=== PATIENT | female | born 1980 | race Asian ===

== ENCOUNTER 2017-01-02 11:12 | Emergency (ER) | payer MEDICAID ==
[2017-01-02] MEDS ORDERED: ALBUTEROL NEB 2.5 MG/3 ML INH STA (11:54)
[2017-01-02] MEDS ORDERED: BENZONATATE 100 MG CAPSULE PO STA (11:54)
[2017-01-02] MEDS ORDERED: BENZONATATE 100 MG CAPSULE PO ONE (12:25)
== END 2017-01-02 12:47 | disposition home or self-care (01) ==
DX: J40 Bronchitis, not specified as acute or chronic (principal)
CPT/HCPCS: 71020; 94640; 94664; 99283; A9270; J7613

== ENCOUNTER 2017-09-18 17:35 | Outpatient (CLI) | payer MEDICAID ==
[2017-09-18 13:36] LABS: BILIRUBIN,URINE NEGATIVE (NEGATIVE); PH,URINE 6.5 PH (5.0-7.5)
[2017-09-18 13:42] LABS: BASOPHILS # (AUTO) 0.1 10^3/uL (0.0-0.1); BASOPHILS % (AUTO) 1.4 %; EOSINOPHILS # (AUTO) 0.1 10^3/uL (0.0-0.7); EOSINOPHILS % (AUTO) 3.4 %; HCT - HEMATOCRIT 40.2 % (37.0-47.0); HGB - HEMOGLOBIN 13.5 g/dL (12.0-16.0); LYMPHOCYTES # (AUTO) 1.4 10^3/uL (1.5-3.5); LYMPHOCYTES % (AUTO) 34.1 %; MEAN CORPUSCULAR HEMOGLOBIN 32.3 pg (27.0-31.0); MEAN CORPUSCULAR HGB CONC 33.6 g/dL (32.0-36.0); MEAN CORPUSCULAR VOLUME 96.2 fL (81.0-99.0); MEAN PLATELET VOLUME 8.7 fL (7.9-10.8); MONOCYTES # (AUTO) 0.5 10^3/uL (0.0-1.0); MONOCYTES % (AUTO) 11.3 %; NEUTROPHILS # (AUTO) 2.1 10^3/uL (1.5-6.6); NEUTROPHILS % (AUTO) 49.8 %; NUCLEATED RED BLOOD CELLS AUTO 0.1 /100WBC; RED BLOOD COUNT 4.18 10^6/uL (4.20-5.40); RED CELL DISTRIBUTION WIDTH 12.4 % (12.0-15.0); UNCORRECTED WHITE BLOOD COUNT 4.2 x10^3/uL; WHITE BLOOD COUNT 4.2 x10^3/uL (4.8-10.8)
[2017-09-18 14:04] LABS: WBC,URINE 0-3 /HPF (0-5)
[2017-09-19 04:01] LABS: TEST RESULT REPORT
== END 2017-09-18 17:36 | disposition home or self-care (01) ==
LOC: LAB.N 17:35
PROVIDERS: ATTEND Obstetrics & Gynecology
DX: Z36.9 Encounter for antenatal screening, unspecified (principal)
CPT/HCPCS: 36415; 81001; 81599; 85025; 86592; 86762; 86850; 86900; 86901; 87340; 87389; 87491; 87591

== ENCOUNTER 2017-10-20 11:15 | Outpatient (CLI) | payer MEDICAID ==
[2017-10-20 11:44] LABS: BASOPHILS % (AUTO) 0.3 %; EOSINOPHILS # (AUTO) 0.2 10^3/uL (0.0-0.7); EOSINOPHILS % (AUTO) 3.5 %; HGB - HEMOGLOBIN 13.8 g/dL (12.0-16.0); LYMPHOCYTES % (AUTO) 14.6 %; MEAN CORPUSCULAR HEMOGLOBIN 32.4 pg (27.0-31.0); MEAN CORPUSCULAR HGB CONC 33.6 g/dL (32.0-36.0); MEAN CORPUSCULAR VOLUME 96.4 fL (81.0-99.0); MEAN PLATELET VOLUME 7.5 fL (7.9-10.8); MONOCYTES # (AUTO) 0.5 10^3/uL (0.0-1.0); MONOCYTES % (AUTO) 7.4 %; NEUTROPHILS # (AUTO) 5.2 10^3/uL (1.5-6.6); NEUTROPHILS % (AUTO) 74.2 %; PLT - PLATELET COUNT 189 10^3/uL (130-450); RED BLOOD COUNT 4.25 10^6/uL (4.20-5.40); RED CELL DISTRIBUTION WIDTH 12.4 % (12.0-15.0)
[2017-10-20 11:58] LABS: BILIRUBIN,URINE NEGATIVE (NEGATIVE); GLUCOSE, URINE (UA) NEGATIVE (NEGATIVE); KETONES,URINE (UA) NEGATIVE (NEGATIVE); LEUKOCYTE ESTERASE, URINE NEGATIVE (NEGATIVE); NITRITE,URINE NEGATIVE (NEGATIVE); OCCULT BLOOD,URINE NEGATIVE (NEGATIVE); PROTEIN,URINE NEGATIVE (NEGATIVE); UROBILINOGEN,URINE 0.2 (NORMAL) E.U./dL (NORMAL)
[2017-10-20 12:00] LABS: CLARITY,URINE CLEAR (CLEAR)
== END 2017-10-20 11:16 | disposition home or self-care (01) ==
LOC: LAB 11:15
PROVIDERS: ATTEND Obstetrics & Gynecology
DX: Z01.812 Encounter for preprocedural laboratory examination (principal); O02.1 Missed abortion
CPT/HCPCS: 36415; 81003; 84702; 85025

== ENCOUNTER 2017-10-21 11:43 | Day surgery (SDC) | payer MEDICAID ==
[2017-10-21] MEDS ORDERED: LACTATED RINGERS 1,000 ML IV ONE ×2 (12:35→14:50)
[2017-10-21] MEDS ORDERED: SCOPOLAMINE PATCH TOP ONE (12:53)
[2017-10-21] MEDS ORDERED: PROPOFOL 200 MG/20 ML VIAL IVP ONE (13:21)
[2017-10-21] MEDS ORDERED: KETOROLAC 30 MG/ML VIAL IVP ONE (13:21)
[2017-10-21] MEDS ORDERED: OXYTOCIN 10 UNIT/ML VIAL IV ONE (13:21)
[2017-10-21] MEDS ORDERED: MIDAZOLAM 2 MG/2 ML VIAL IVP ONE (13:21)
[2017-10-21] MEDS ORDERED: fentaNYL 250 MCG/5 ML VIAL IVP ONE (13:21)
[2017-10-21] MEDS ORDERED: ONDANSETRON 4 MG/2 ML VIAL IVP ONE (13:21)
[2017-10-21] MEDS: fentaNYL 100 MCG/2 ML VIAL ONE ×2 (14:15→14:23)
[2017-10-21 15:04] VITALS: BP 90/58
--- NOTE | 2017-10-21 18:34 | OPERATIVE REPORT ---
Operative Report - General Procedure Date: 10/21/17 Planned Procedure: Dilatation and curettage with suction Pre-Op Diagnosis: Inevitable at 8 weeks gestation; Maternal fever 38C Procedure Performed: Dilatation and curettage with suction Post Op Diagnosis: Same as above - Procedure Note Primary Surgeon: Kelvin Butt MD Anesthesia Provider: Gomez Altman, certified nurse certified welder Anesthesia Technique: General ET tube Pathology: Moderate amount of conceptual products; aerobic culture and anaerobic culture IV Fluids (mL): 800 Estimated Blood Loss (mL): 150 Urine Output (mL): 100 Drain/Tube Type: Other (None) Complications: None
--- NOTE | 2017-11-03 09:23 | PROCEDURE REPORT ---
DATE OF SERVICE: 10/21/2017 Physician: Kelvin Butt MD PREOPERATIVE DIAGNOSES 1. Inevitable/missed at 8 weeks' gestation. 2. Mild maternal temperature elevation at 38 degrees Celsius. POSTOPERATIVE DIAGNOSES 1. Inevitable/missed at 8 weeks' gestation. 2. Mild maternal temperature elevation at 38 degrees Celsius. PROCEDURE: Dilatation and curettage with suction. SURGEON: Kelvin Butt MD, FACOG, FICS ANESTHESIA: Gomez Altman, Certified Nurse Radar Mechanic ANESTHESIA: General, ET tube placed. DRAINS: None. The patient was straight catheterized prior to surgery of approximately 100 mL COMPLICATIONS: None. ESTIMATED BLOOD LOSS: 150. FINDINGS: External genitalia appear to be normal without lesions. There was no blood or discharge in the vagina, but it had been prepped at the time of exam. Cervix was opened slightly 0.5 cm and softened. The uterus was retroflexed and retroverted and 8 week size. The ovaries were normal size, mobile. At the time of curettage, a moderate amount of conceptual products were harvested. There was no foul smell. Due to a maternal temperature elevation, aerobic and anaerobic cultures were obtained. INTRAVENOUS FLUIDS: 800. URINE OUTPUT: 100. TECHNIQUE: Prior to the procedure, I had a preoperative session with the patient and her . The mechanics of D and C, potential benefits, potential risks and alternatives were reviewed. She is certain she wants to move forward with her D and C. The patient was placed on the operating room table in the supine position. She was induced and intubated uneventfully. She was moved to the low dorsal lithotomy position on [facility] stirru. She was prepped and draped in the customary sterile fashion. Exam under anesthesia was done. She was straight catheterized. Timeout briefing was done per protocol. I was informed by Anesthesia the patient's temperature had risen to 38 degrees Celsius. Weighted speculum was placed in the posterior vagina. The cervix was well visualized and grasped with a single-tooth tenaculum. Serial application and Hegar probes were used to dilate to size #9. A medium curet was introduced into the uterus and the conceptual products were located on the anterior wall. A #9 suction curet was brought to the field and suctioned, appropriately adjusted. The suction curet then was uneventfully guided through the endocervix and into the uterine cavity. Negative pressure was applied and the curet manipulated in a systematic fashion. A moderate amount of conceptual products was harvested, consistent with the anticipated gestational age. Immediately after, the bleeding was somewhat brisk and the uterine cavity was packed with iodoform 1 inch gauze. Bleeding responded to packing and Pitocin. All instruments were removed. The patient was uneventfully awakened from general anesthesia and taken to Recovery. Postop, all the intraoperative events were reviewed with the patient. Iodoform gauze was removed and there was no subsequent bleeding. She was prepared for discharge. DISCHARGE MEDICATIONS 1. Motrin 600 p.o. q.6 hours. 2. Wadley 325/5 p.o. q.4 hours p.r.n. breakthrough pain. 3. Colace 250 mg 1 daily. FOLLOWUP: In 2 weeks, she will have a return visit to review pathology. TD: 11/03/2017 10:21
== END 2017-10-21 11:44 | disposition home or self-care (01) ==
LOC: SDS 11:43
PROVIDERS: ATTEND Obstetrics & Gynecology
PROC: 10D17ZZ Extraction of Products of Conception, Retained, Via Natural or Artificial Opening (ICD-10-PCS; principal; 2017-10-21 12:45)
DX: O02.1 Missed abortion (principal); R50.9 Fever, unspecified
CPT/HCPCS: 59820; 87070; 87205; 88305; J3010; J3490; J7120

== ENCOUNTER 2019-10-07 10:44 | Outpatient (CLI) | payer MEDICAID ==
--- NOTE | 2019-10-09 09:09 | Ultrasound Report ---
Reason: TEST POSITIVE Procedure Date: 10/07/2019 Accession Number: [id number] / [id number] Procedure: US - OB First Trimester CPT Code: Final Report FULL RESULT: EXAM: FIRST TRIMESTER OBSTETRIC ULTRASOUND (Less than 11 weeks) EXAM DATE: 10/07/2019 03:13 PM. CLINICAL HISTORY: test positive. LMP: 08/04/2019. COMPARISONS: OB 09/01/2011 9:23 AM. TECHNIQUE: Transabdominal and transvaginal ultrasound examination with static image documentation. CLINICAL DATES: EGA 9 weeks 1 day with LAURA 05/10/2020 based on LMP. ASSESSMENT: Gestational Sac: Single intrauterine. Embryo: CRL (crown-rump length) 24 mm = 9 weeks 1 day with an LAURA of 05/10/2020. Cardiac activity: 173 beats per minute. Yolk sac: 5 mm. Amniotic fluid: Not accurately assessed at this gestational age. Early placenta: Not visible at this gestational age. Other: Complex perigestational fluid measuring 2.3 x 1.1 x 2.6 cm. MATERNAL STRUCTURES: Uterus: Anteverted. Unremarkable. Cervix: Closed. Right Ovary/Adnexa: The ovary measures 2.7 x 3.0 x 2.5 cm, volume 10.4 cc. 2.2 cm complex right ovarian cyst with debris and mild peripheral flow. No mural nodules or thickened septations. Left Ovary/Adnexa: The ovary measures 3.5 x 2.3 x 4.2 cm, volume 18 cc. Unremarkable. Free Fluid: None. Other: None. IMPRESSION: 1. Single viable intrauterine at EGA 9 weeks 1 day with LAURA 05/10/2020 based on crown-rump length, which is concordant with clinical dates. 2. Assigned dating is LAURA 05/10/2020 based on LMP. 3. Small perigestational hemorrhage as above. 4. 2.2 cm complex right ovarian cyst most compatible with hemorrhagic cyst or corpus luteum. Otherwise, normal bilateral ovaries and adnexa are seen. RADIA
== END 2019-10-07 10:45 | disposition home or self-care (01) ==
LOC: DI 10:44
PROVIDERS: ATTEND Nurse Practitioner Obstetrics & Gynecology
DX: O34.81 Maternal care for other abnormalities of pelvic organs, first trimester (principal); N83.201 Unspecified ovarian cyst, right side; Z3A.09 9 weeks gestation of pregnancy
CPT/HCPCS: 76801

== ENCOUNTER 2019-10-24 10:32 | Outpatient (CLI) | payer MEDICAID ==
[2019-10-24 14:22] LABS: BILIRUBIN,URINE NEGATIVE (NEGATIVE); GLUCOSE, URINE (UA) NEGATIVE (NEGATIVE); KETONES,URINE (UA) NEGATIVE (NEGATIVE); LEUKOCYTE ESTERASE, URINE NEGATIVE (NEGATIVE); NITRITE,URINE NEGATIVE (NEGATIVE); OCCULT BLOOD,URINE NEGATIVE (NEGATIVE); PH,URINE 6.5 PH (5.0-7.5); PROTEIN,URINE NEGATIVE (NEGATIVE); UROBILINOGEN,URINE 0.2 (NORMAL) E.U./dL (NORMAL)
[2019-10-24 14:26] LABS: CLARITY,URINE CLEAR (CLEAR)
[2019-10-24 14:47] LABS: AMORPHOUS SEDIMENT,UR Moderate /LPF; BACTERIA,URINE Many /HPF (None Seen); CASTS, URINE 0-2 Granular Casts /LPF; MUCUS,URINE Few Strands; RBC,URINE 0-5 /HPF (0-5); SQUAMOUS EPITHELIAL CELL,UR MOD Squamous (<= Few)
[2019-10-24 22:44] LABS: TRICHOMONAS VAGINALIS DNA NEGATIVE (NEGATIVE)
== END 2019-10-24 10:33 | disposition home or self-care (01) ==
LOC: LAB 10:32 → LAB.R 10:33
PROVIDERS: ATTEND Obstetrics & Gynecology
DX: Z34.90 Encounter for supervision of normal pregnancy, unspecified, unspecified trimester (principal)
CPT/HCPCS: 81001; 87086; 87491; 87591; 87661

== ENCOUNTER 2019-11-22 08:00 | Outpatient (CLI) | payer MEDICAID ==
[2019-11-22 15:00] LABS: MUDS CUTOFF CONCENTRATIONS CUTOFF CONC BELOW:
[2019-11-22 15:21] LABS: AMPHETAMINE SCREEN,URINE NEGATIVE (NEGATIVE); BENZODIAZEPINES SCREEN, URINE NEGATIVE (NEGATIVE); COCAINE SCREEN URINE NEGATIVE (NEGATIVE); METHADONE SCREEN, URINE NEGATIVE (NEGATIVE); METHAMPHETAMINES SCREEN, URINE NEGATIVE (NEGATIVE); OPIATE SCREEN, URINE NEGATIVE (NEGATIVE); OXYCODONE SCREEN, URINE NEGATIVE (NEGATIVE); PROPOXYPHENE SCREEN, URINE NEGATIVE (NEGATIVE); TRICYCLIC ANTIDEPRESSANT,URINE NEGATIVE (NEGATIVE)
[2019-11-22 20:55] LABS: CANDIDA GROUP DNA NEGATIVE (NEGATIVE); CANDIDA KRUSEI DNA NEGATIVE (NEGATIVE); TRICHOMONAS VAGINALIS DNA NEGATIVE (NEGATIVE)
== END 2019-11-22 23:59 | disposition home or self-care (01) ==
LOC: LAB.R 08:00
PROVIDERS: ATTEND Obstetrics & Gynecology
DX: O46.92 Antepartum hemorrhage, unspecified, second trimester (principal)
CPT/HCPCS: 80306; 87661; 87801

== ENCOUNTER 2019-11-22 11:41 | Outpatient (CLI) | payer MEDICAID ==
[2019-11-22 12:13] LABS: BASOPHILS % (AUTO) 0.5 %; EOSINOPHILS # (AUTO) 0.1 10^3/uL (0.0-0.7); EOSINOPHILS % (AUTO) 1.5 %; LYMPHOCYTES # (AUTO) 1.3 10^3/uL (1.5-3.5); MEAN CORPUSCULAR HEMOGLOBIN 32.7 pg (27.0-31.0); MEAN CORPUSCULAR HGB CONC 33.2 g/dL (32.0-36.0); MEAN CORPUSCULAR VOLUME 98.5 fL (81.0-99.0); MEAN PLATELET VOLUME 10.3 fL (7.9-10.8); MONOCYTES # (AUTO) 0.5 10^3/uL (0.0-1.0); MONOCYTES % (AUTO) 6.2 %; NEUTROPHILS # (AUTO) 6.2 10^3/uL (1.5-6.6); NEUTROPHILS % (AUTO) 75.3 %; PLT - PLATELET COUNT 215 10^3/uL (130-450); RED BLOOD COUNT 3.98 10^6/uL (4.20-5.40); RED CELL DISTRIBUTION WIDTH 12.1 % (12.0-15.0); WHITE BLOOD COUNT 8.2 x10^3/uL (4.8-10.8)
[2019-11-23 12:38] LABS: HEPATITIS C ANTIBODY NON-REACTIVE (NON-REACTIVE)
[2019-11-23 12:39] LABS: HEPATITIS B SURFACE ANTIGEN NON-REACTIVE (NON-REACTIVE)
[2019-11-23 14:20] LABS: HIV AG/AB 4TH GEN NON-REACTIVE (NON-REACTIVE)
== END 2019-11-22 11:42 | disposition home or self-care (01) ==
LOC: LAB 11:41
PROVIDERS: ATTEND Obstetrics & Gynecology
DX: O46.92 Antepartum hemorrhage, unspecified, second trimester (principal); O09.892 Supervision of other high risk pregnancies, second trimester
CPT/HCPCS: 36415; 80306; 81599; 85025; 86592; 86762; 86803; 86850; 86900; 86901; 87340; 87389; 87661; 87801

== ENCOUNTER 2019-11-27 14:10 | Outpatient (CLI) | payer MEDICAID ==
--- NOTE | 2019-11-29 08:23 | Ultrasound Report ---
Reason: 2ND TRIMESTER VAGINAL BLEEDING Procedure Date: 11/27/2019 Accession Number: [id number] / [id number] Procedure: US - OB F/U or Repeat CPT Code: Final Report FULL RESULT: EXAM: FOLLOW-UP OBSTETRICAL ULTRASOUND EXAM DATE: 11/27/2019 02:16 PM. CLINICAL HISTORY: 2ND TRIMESTER VAGINAL BLEEDING. COMPARISON: OB FIRST TRIMESTER 10/07/2019 11:02 AM. TECHNIQUE: Real-time sonographic evaluation of the fetus performed by the aluminum can collector. Additional transvaginal imaging to more accurately evaluate cervical length/placental position/etc. Multiple internet sales representative static images were saved for review. DATING: Established EGA 16 weeks 3 days with LAURA 05/10/2020 based on physician stated. EGA 16 weeks 3 days with LAURA 05/10/2020 based on prior ultrasound . EGA Extina weeks 5 days with LAURA 05/08/2020 based on the current ultrasound. GENERAL EVALUATION Teresa . Cardiac activity: 149 bpm. movement: Visualized. Presentation: Cephalic. Variable Placenta: Anterior position. Amniotic fluid: Normal. KRAIG 10.9 cm. MVP 3.4 cm. BIOMETRY Bi-Parietal Diameter (BPD): 3.7 cm, 17 weeks 2 days Head Circumference (HC): 13.5 cm, 17 weeks 0 days Abdominal Circumference (AC): 10.7 cm, 16 weeks 4 days Femur Length (FL): 2.1 cm, 16 weeks 1 day Estimated Weight: 157 g, 44 percentile for weeks/days. ANATOMY Not evaluated MATERNAL STRUCTURES Right ovary: 2 x 1.4 x 1.6 cm. 2.3 cc. Possible involuting corpus luteum 1.7 x 0.9 x 1 cm. Left ovary not seen. Cervix 5.7 cm. IMPRESSION: 1. Teresa live intrauterine with gestational age 16 weeks 3 days based on physician dating in variable presentation.. 2. Estimated weight is within expected limits for assigned dating. 3. Anterior placenta with no placenta previa. RADIA
== END 2019-11-27 14:11 | disposition home or self-care (01) ==
LOC: DI 14:10
PROVIDERS: ATTEND Obstetrics & Gynecology
DX: O46.92 Antepartum hemorrhage, unspecified, second trimester (principal); Z3A.16 16 weeks gestation of pregnancy
CPT/HCPCS: 76816

== ENCOUNTER 2020-01-21 08:05 | Outpatient (CLI) | payer MEDICAID ==
--- NOTE | 2020-01-22 01:26 | Ultrasound Report ---
Reason: SUPER OF NORMAL Procedure Date: 01/21/2020 Accession Number: [id number] / [id number] Procedure: US - OB Detailed Eval CPT Code: Final Report FULL RESULT: EXAM: COMPLETE OBSTETRICAL ULTRASOUND EXAM DATE: 01/21/2020 09:50 AM. CLINICAL HISTORY: anatomic survey. COMPARISON: OB F/U OR REPEAT 11/27/2019 2:16 PM. TECHNIQUE: Real-time sonographic evaluation of the fetus performed by the merchandising consultant. Multiple operations representative static images were saved for review. DATING: Established EGA 24 weeks 2 days with LAURA 05/10/2020 based on LMP. EGA 24 weeks 2 days with LAURA 05/10/2020 based on prior ultrasound. EGA 24 weeks 3 days with LAURA 05/09/2020 based on the current ultrasound. GENERAL EVALUATION Teresa . Cardiac activity: 139 bpm. movement: Visualized. Presentation: Variable. Placenta: Anterior position. No evidence for previa. Umbilical cord: 3 vessel cord. Central placental cord origin. Amniotic fluid: KRAIG 17.7 cm. MVP 6.5 cm. BIOMETRY Bi-Parietal Diameter (BPD): 6.0 cm, 24 weeks 4 days Head Circumference (HC): 22.3 cm, 24 weeks 2 days Abdominal Circumference (AC): 20.0 cm, 24 weeks 5 days Femur Length (FL): 4.2 cm, 23 weeks 6 days Estimated Weight: 682 g, 41.2 percentile for 24 weeks 2 days. ANATOMY The intracranial structures, profile, face/nose/lips, spine, 4 chamber heart and outflow tracts, stomach, abdominal wall and cord insertion, diaphragm, kidneys, bladder, and extremities were visualized and demonstrate no abnormality. MATERNAL STRUCTURES Uterus: Unremarkable. Cervix: Long and closed. Transabdominal length 4.7 cm. Right ovary/adnexa: Unremarkable. Left ovary/adnexa: Unremarkable. Free fluid: None. IMPRESSION: 1. Teresa live intrauterine with gestational age 24 weeks 2 days based on LMP. 2. Estimated weight is within expected limits for assigned dating. 3. Normal anatomic survey. No anatomic abnormalities are detected at this time. RADIA
== END 2020-01-21 08:06 | disposition home or self-care (01) ==
LOC: DI 08:05
PROVIDERS: ATTEND Obstetrics & Gynecology
DX: Z34.02 Encounter for supervision of normal first pregnancy, second trimester (principal)
CPT/HCPCS: 76811

== ENCOUNTER 2020-01-25 08:15 | Outpatient (CLI) | payer MEDICAID | END 2020-01-25 08:16 | disposition home or self-care (01) | LOC: LAB 08:15 | PROVIDERS: ATTEND Obstetrics & Gynecology | DX: Z34.90 Encounter for supervision of normal pregnancy, unspecified, unspecified trimester (principal) | CPT/HCPCS: 36415; 82950 ==

== ENCOUNTER 2020-02-23 07:59 | Outpatient (CLI) | payer MEDICAID ==
[2020-02-23 08:26] LABS: HGB - HEMOGLOBIN 12.4 g/dL (12.0-16.0); MEAN CORPUSCULAR HEMOGLOBIN 32.9 pg (27.0-31.0); MEAN CORPUSCULAR HGB CONC 32.7 g/dL (32.0-36.0); MEAN CORPUSCULAR VOLUME 100.5 fL (81.0-99.0); MEAN PLATELET VOLUME 10.6 fL (7.9-10.8); RED BLOOD COUNT 3.77 10^6/uL (4.20-5.40); RED CELL DISTRIBUTION WIDTH 12.5 % (12.0-15.0); WHITE BLOOD COUNT 6.8 x10^3/uL (4.8-10.8)
== END 2020-02-23 08:00 | disposition home or self-care (01) ==
LOC: LAB 07:59
PROVIDERS: ATTEND Obstetrics & Gynecology
DX: O99.810 Abnormal glucose complicating pregnancy (principal); Z36.89 Encounter for other specified antenatal screening; Z3A.00 Weeks of gestation of pregnancy not specified
CPT/HCPCS: 36415; 82951; 82952; 85027; 86850

== ENCOUNTER 2020-04-12 08:00 | Outpatient (CLI) | payer MEDICAID ==
[2020-04-12 21:29] LABS: TRICHOMONAS VAGINALIS DNA NEGATIVE (NEGATIVE)
== END 2020-04-12 23:59 | disposition home or self-care (01) ==
LOC: LAB.R 08:00
PROVIDERS: ATTEND Obstetrics & Gynecology
DX: Z36.85 Encounter for antenatal screening for Streptococcus B (principal); Z11.3 Encounter for screening for infections with a predominantly sexual mode of transmission
CPT/HCPCS: 87491; 87591; 87661; 87797

== ENCOUNTER 2020-05-01 09:47 | Inpatient (IN) | payer MEDICAID ==
[2020-05-01] MEDS ORDERED: TRANEXAMIC ACID 1,000 MG in SODIUM CHLORIDE 0.9% 100ML 100 ML IV PRN (09:57)
[2020-05-01] MEDS ORDERED: LIDOCAINE-MPF 1% 30 ML VIAL ID PRN (09:57)
[2020-05-01] MEDS ORDERED: OXYTOCIN 10 UNIT/ML VIAL IM PRN (09:57)
[2020-05-01] MEDS ORDERED: CARBOPROST TROMETHAMINE 250 MCG/ML AMP IM PRN (09:57)
[2020-05-01] MEDS ORDERED: miSOPROStoL 200 MCG TABLET BC PRN (09:57)
[2020-05-01] MEDS ORDERED: METHYLERGONOVINE 0.2 MG/ML VIAL IM PRN (09:57)
[2020-05-01] MEDS ORDERED: SODIUM CHLORIDE FLUSH 0.9% 10 ML SYRINGE IVP PRN (09:57)
[2020-05-01] MEDS ORDERED: ceFAZolin 2 GM in SODIUM CHLORIDE 0.9% 100ML 100 ML IV ONE (09:57)
[2020-05-01] MEDS ORDERED: OXYTOCIN/SODIUM CHLORIDE 500 ML IV PRN ×2 (09:57)
[2020-05-01] MEDS: LACTATED RINGERS 1,000 ML IV SCH ×3 (10:29→21:32)
[2020-05-01 10:41] LABS: BASOPHILS % (AUTO) 0.3 %; EOSINOPHILS % (AUTO) 0.5 %; HGB - HEMOGLOBIN 13.3 g/dL (12.0-16.0); LYMPHOCYTES # (AUTO) 1.1 10^3/uL (1.5-3.5); LYMPHOCYTES % (AUTO) 18.1 %; MEAN CORPUSCULAR HEMOGLOBIN 33.8 pg (27.0-31.0); MEAN CORPUSCULAR HGB CONC 33.8 g/dL (32.0-36.0); MEAN PLATELET VOLUME 11.3 fL (7.9-10.8); MONOCYTES # (AUTO) 0.6 10^3/uL (0.0-1.0); MONOCYTES % (AUTO) 10.4 %; NEUTROPHILS # (AUTO) 4.2 10^3/uL (1.5-6.6); NEUTROPHILS % (AUTO) 70.2 %; PLT - PLATELET COUNT 154 10^3/uL (130-450); RED BLOOD COUNT 3.94 10^6/uL (4.20-5.40); RED CELL DISTRIBUTION WIDTH 12.8 % (12.0-15.0)
[2020-05-01] MEDS ORDERED: CITRIC ACID/SODIUM CITRATE 15 ML UDC PO ONE ×2 (10:49→10:56)
--- NOTE | 2020-05-01 10:49 | ANESTHESIA ---
Pre-Anesthesia VS, & Labs - Diagnosis ruptured membranes requiring c sec - Procedure c sec. Vital Signs: Temp Pulse Resp BP Pulse Ox 36.5 C 75 16 99/59 L 100 05/01/20 10:01 05/01/20 10:01 05/01/20 10:01 05/01/20 10:01 05/01/20 10:01 Height 5 ft 3 in Weight (kg) 52.163 kg Body Mass Index 17.5 - NPO >8 hours - Is Patient ?: Yes - Lab Results Current Lab Results: Laboratory Tests 05/01/20 10:29: WBC 6.0, RBC 3.94 L, Hgb 13.3, Hct 39.4, MCV 100.0 H, MCH 33.8 H , MCHC 33.8, RDW 12.8, Plt Count 154, MPV 11.3 H, Neut # (Auto) 4.2, Lymph # (Auto) 1.1 L, [place] # (Auto) 0.6, Eos # (Auto) 0.0, Baso # (Auto) 0.0, Absolute Nucleated RBC 0.00, Nucleated RBC % 0.0 Fish Bones: 05/01/20 10:29 Home Medications and Allergies Active Medications Carboprost Tromethamine (Hemabate) 250 mcg IM Q15M PRN PRN Reason: Step 4: Hemorrhage protocol Stop: 05/03/20 09:57 Lactated Ringer's (Lr) 1,000 mls @ 150 mls/hr IV .Q6H40M ANNA Last Admin: 05/01/20 10:29 Dose: 150 mls/hr Documented by: Tranexamic Acid 1,000 mg/ (Sodium Chloride) 110 mls @ 660 mls/hr IV ONCE PRN PRN Reason: EBL >1200mL and within 3hr Stop: 05/03/20 09:57 Oxytocin/Sodium Chloride (Pitocin/Sodium Chloride) 500 mls @ 999 mls/hr IV PRN PRN; Protocol PRN Reason: POST- HEMORR PREVENTION Lidocaine HCl (Xylocaine-Mpf 1% Vial) 30 ml ID ONCE PRN PRN Reason: PERINEAL REPAIR Stop: 05/03/20 09:57 Methylergonovine Maleate (Methergine Inj) 0.2 mg IM ONCE PRN PRN Reason: Step 2: Hemorrhage protocol Stop: 05/03/20 09:57 Misoprostol (Cytotec) 800 mcg BC ONCE PRN PRN Reason: Step 3: Hemorrhage protocol Stop: 05/03/20 09:57 Oxytocin (Pitocin) 10 unit IM ONCE PRN PRN Reason: Step one: If no IV access Stop: 05/03/20 09:57 Sodium Chloride (Normal Saline Flush 0.9%) 10 ml IVP PRN PRN PRN Reason: NEEDED PER PROVIDER ORDERS Sodium Chloride (Normal Saline Flush 0.9%) 10 ml IVP 0100,0900,1700 ANNA No Known Home Medications 10/20/17 Allergies/Adverse Reactions: Allergies Allergy/AdvReac Type Severity Reaction Status Date / Time No Known Drug Allergies Allergy Verified 10/20/17 11:21 Anes History & Medical History - Anesthetic History Anesthesia Complications: reports: No previous complications Family history of Anesthesia Complications: Denies Family history of Malignant Hyperthermia: Denies - Medical History Cardiovascular: reports: None Pulmonary: reports: None Gastrointestinal: reports: None Urinary: reports: None Neuro: reports: None Musculoskeletal: reports: None Endocrine/Autoimmune: reports: None Blood Disorders: reports: None Skin: reports: None Smoking Status: Never smoker Psychosocial: reports: No issues indicated - Surgical History General: Appendectomy Gynecologic: section Exam General: Alert, Oriented x3, Cooperative, No acute distress Dental: WNL Mouth Openin Fingerbreadth Neck Mobility: Normal Mallampati classification: I Thyromental Distance: 4-6 cm Respiratory: Lungs clear, Normal breath sounds, No respiratory distress, No accessory muscle use Cardiovascular: Regular rate, Normal S1, Normal S2, No murmurs Abdomen: Normal bowel sounds, Soft, No tenderness, No hepatospenomegaly, No masses Extremities: No clubbing, No cyanosis, No edema, Normal pulses, No tenderness/swelling Neurological: Normal gait, Normal speech, Strength at 5/5 X4 ext, Normal tone, Sensation intact, Cranial nerves 3-12 NL, Reflexes 2+ Mental/Cognitive Status: Alert/Oriented X3, Normal for patient Cognitive Status: Within normal limits Plan Anesthesia Type: Spinal, Transverse Abdominis Plane (TAP) Block Consent for Procedure(s) Verified and Reviewed: Yes Code Status: Attempt Resuscitation ASA classification: 2-Mild systemic disease Is this case an emergency?: No
[2020-05-01] MEDS ORDERED: MORPHINE PF 5 MG/10 ML AMP IVP ONE (11:11)
[2020-05-01] MEDS ORDERED: [UNRECOGNIZED DRUG - OTHER] EP ONE (11:11)
[2020-05-01] MEDS ORDERED: fentaNYL 100 MCG/2 ML VIAL IVP ONE (11:11)
[2020-05-01] MEDS ORDERED: DEXAMETHASONE 4 MG/ML VIAL IVP ONE (11:11)
[2020-05-01] MEDS ORDERED: ONDANSETRON 4 MG/2 ML VIAL IVP ONE (11:11)
[2020-05-01] MEDS ORDERED: BUPIVACAINE 0.75% EP ONE (11:11)
[2020-05-01] MEDS ORDERED: OXYTOCIN 10 UNIT/ML VIAL IV ONE (11:11)
[2020-05-01] MEDS ORDERED: ROPIVACAINE 0.5% PF 20 ML AMPULE ONE (11:13)
[2020-05-01] MEDS ORDERED: ROPIVACAINE 0.2% PF 20ML VIAL ONE (11:13)
[2020-05-01] MEDS ORDERED: CARBOPROST TROMETHAMINE 250 MCG/ML AMP IM ONE (11:14)
[2020-05-01] MEDS ORDERED: METHYLERGONOVINE 0.2 MG/ML VIAL ONE (11:14)
[2020-05-01] MEDS ORDERED: LACTATED RINGERS 1,000 ML IV ONE (11:42)
[2020-05-01] MEDS ORDERED: SODIUM CHLORIDE 0.9% 1,000 ML IV ONE (12:40)
--- NOTE | 2020-05-01 12:53 | PREOP HISTORY & PHYSICAL ---
DATE OF SERVICE: 05/01/2020 Physician: Kelvin Reaves MD IDENTIFICATION: Patient is a 40-year-old G4, P2, AB1 female whose EDC is 05/10/2020. This was deter mined by early visits and ultrasound. She has a history of having had 2 previous sections. She is also requesting a tubal ligation. She is aware this is a permanent procedure. Her OB care started at 11 weeks' EGA. Her labs show her to be O positive, she is rubella immune. Sh e is GC chlamydia negative, as are the rest of her STIs; however, she had a Pap smear which showed ev idence of high-grade CHASIDY. She underwent a colposcopy earlier in her . At this particular p oint, she complained of bleeding and cramping, which started last night. She had bloody show twice. She does note good motion. At this point, she was scheduled for a on this coming ; we are planning to proceed on to at this time. PAST MEDICAL HISTORY: Patient denies any diabetic, cardiac, or pulmonary disease. SURGICAL HISTORY: Positive for section x2 as well as appendectomy. ALLERGIES: NONE KNOWN. HABITS: Patient denies use of alcohol, tobacco, or street or addictive drugs. She is currently gretchen ied. Her ethnic background is [place]ian. She does appear to speak and understand Lithuanian in a functi onal fashion. PHYSICAL EXAMINATION GENERAL: Patient is a well-developed, well-nourished female. She is somewhat thin in nature. HEENT: Pupils equal, round. Extraocular muscles are intact. Thyroid is not palpably enlarged. Winnie th is clear. HEART: Regular rate and rhythm without murmurs. LUNGS: Lung mckenzie are clear without rales or wheezes. BACK: No spinal or CVA tenderness noted. PELVIC: On examination, her fundal height was 38 cm, vertex. heart tones were running in the 40s. Cervix was noted to be fingertip. She was -1. She was 60% effaced. IMPRESSION 1. A 40-year-old G4, P2 female at 38 weeks 5 days, early labor. 2. Previous section x2. 3. Undesired fertility. PLAN: We will perform a repeat low transverse section, as well as tubal ligation with salpi ngectomy. The patient is aware of the risks and benefits. She is also aware that salpingectomy shou ld be considered permanent and, as such, she would never be able to have children again. TD: 05/01/2020 11:14
[2020-05-01] MEDS: ACETAMINOPHEN 500 MG TABLET PO SCH ×2 (15:19→23:01)
[2020-05-01] MEDS: KETOROLAC 30 MG/ML VIAL IVP SCH ×2 (15:19→20:52)
[2020-05-01] MEDS: oxyCODONE 5 MG TABLET PO PRN ×2 (17:03→20:53)
[2020-05-01] MEDS: SIMETHICONE CHEW 80 MG TABLET PO SCH (17:03)
--- NOTE | 2020-05-01 17:24 | OPERATIVE REPORT ---
DATE OF SERVICE: 05/01/2020 Physician: Kelvin Reaves MD PREOPERATIVE DIAGNOSES 1. A 39-year-old female at 38.5 weeks. 2. Early labor. 3. Previous section. 4. Undesired fertility. POSTOPERATIVE DIAGNOSES 1. A 39-year-old female at 38.5 weeks. 2. Early labor. 3. Previous section. 4. Undesired fertility. PROCEDURE: Repeat low transverse section with bilateral salpingectomy. SURGEON: Kelvin Reaves MD. AGRI BUSINESS AGENT: Savannah Baez, certified nurse patroller. ANESTHESIA PROVIDER: ABIOLA Abdi. ANESTHETIC: Spinal. ESTIMATED BLOOD LOSS: 800 mL IV FLUIDS: 1100 mL FINDINGS: Upon entering the abdominal cavity, a live female infant noted in the right occiput anterior, clear amniotic fluid. Placenta is posterior. PROCEDURE IN DETAIL: Following adequate spinal anesthesia, patient placed in supine position with a roll under right hip. At this point, a timeout was performed, at which time concerns were addressed. She was then prepped and draped in the usual fashion. A Galan catheter was placed under sterile condition. At this point, a Pfannenstiel incision was made through the old scar, excising the old incision. This was carried down to the fascia. The fascia was incised transversely, then using Garcia scissors, it was extended. The fascia was then dissected off the rectus abdominis. The peritoneum was entered high. Care was taken to avoid any injury to bowel or bladder. At this point, this incision was carried superiorly and inferiorly. Care was once again taken to avoid injury to the bladder. Bladder retractor was placed, and a bladder flap was developed using both blunt and sharp dissection. At this point, a low transverse uterine incision was accomplished using a #10 blade, bandage scissors, and finger spread technique. The membranes were then ruptured, and the amniotic fluid was noted to be clear. The head of the was noted to be right occiput anterior. Then utilizing fundal pressure, the infant was delivered through the incision without difficulty. The oropharynx was bulb suctioned. A loose nuchal cord was noted. A minute was allowed to transpire before clamping the cord. The infant was then handed to the nursery team that was standing by. At this point, the placenta was manually delivered. The uterus was exteriorized, wrapped in a moist lap, and cleansing the internal portion with dry lap. The low transverse uterine incision was closed using running locking suture of 0 Vicryl with an imbricating layer of 0 Vicryl. Upon initiating this layer, there was some bleeding, which came from the left uterine vessels. This was treated with a figure of 8 and then pressure. Once the incision was totally closed, attention was turned back to the vessel, and an additional [id number] was performed with evidence of good hemostasis. The uterus was then tipped forward. The cul-de-sac was suctioned, and then the estimated blood loss was ascertained. The cul-de-sac was irrigated, gutters were likewise clean. The right fallopian tube was identified, followed to its fimbriated end, and then the mesosalpinx was cauterized and transected with the LigaSure all the way to the cornu. Care was taken to leave as minimal tube as possible. The left fallopian tube was treated in identical fashion. At this point, the uterus was delivered back in abdominal cavity. The gutters were irrigated and suctioned. The incision was inspected. There was no evidence of any bleeding. The posterior uterus on the left side was once again inspected, and there was no evidence of bleeding. The peritoneum was closed utilizing 2-0 Vicryl. This fascia was closed using looped PDS. Care was taken to try to bury the knot as to minimize the patient's postop pain. The subcutaneous tissue was closed using 2-0 Vicryl. Incision itself was closed using 4-0 Monocryl subcuticular. This was then treated with Mastisol, Steri- Strips, and then a dressing was placed. The uterus was expressed free of any clot. Patient tolerated the procedure well and was taken to recovery in stable condition. TD: 05/01/2020 16:11 ADRIENNE
[2020-05-01] MEDS: DOCUSATE SODIUM 100 MG CAPSULE PO SCH (20:52)
[2020-05-02] MEDS: oxyCODONE 5 MG TABLET PO PRN ×7 (00:38→22:18)
[2020-05-02] MEDS: KETOROLAC 30 MG/ML VIAL IVP SCH ×2 (02:58→08:52)
[2020-05-02] MEDS: LACTATED RINGERS 1,000 ML IV SCH ×2 (03:44→15:02)
[2020-05-02 05:23] LABS: BASOPHILS % (AUTO) 0.3 %; EOSINOPHILS % (AUTO) 0.1 %; HGB - HEMOGLOBIN 9.9 g/dL (12.0-16.0); LYMPHOCYTES # (AUTO) 1.2 10^3/uL (1.5-3.5); LYMPHOCYTES % (AUTO) 10.8 %; MEAN CORPUSCULAR HEMOGLOBIN 33.3 pg (27.0-31.0); MEAN CORPUSCULAR HGB CONC 32.9 g/dL (32.0-36.0); MEAN CORPUSCULAR VOLUME 101.3 fL (81.0-99.0); MEAN PLATELET VOLUME 11.3 fL (7.9-10.8); MONOCYTES % (AUTO) 8.4 %; NEUTROPHILS # (AUTO) 9.2 10^3/uL (1.5-6.6); NEUTROPHILS % (AUTO) 79.8 %; PLT - PLATELET COUNT 124 10^3/uL (130-450); RED BLOOD COUNT 2.97 10^6/uL (4.20-5.40); RED CELL DISTRIBUTION WIDTH 12.7 % (12.0-15.0); WHITE BLOOD COUNT 11.5 x10^3/uL (4.8-10.8)
[2020-05-02] MEDS: SODIUM CHLORIDE FLUSH 0.9% 10 ML SYRINGE IVP SCH ×2 (07:11→08:53)
[2020-05-02] MEDS: SIMETHICONE CHEW 80 MG TABLET PO SCH ×4 (07:11→17:45)
[2020-05-02] MEDS: ACETAMINOPHEN 500 MG TABLET PO SCH ×3 (07:14→23:00)
--- NOTE | 2020-05-02 09:00 | PROVIDER PROGRESS NOTE ---
Subjective - General Admit Date: 05/01/20 Procedure Date: 10/21/17 Post Op Days: 924 Procedure Performed: RLTC/S withsalpingectomy - Review of Systems Wound/Incisions: positive: Dressing dry and intact General: positive: No symptoms (Pain 3/10, passing flatus.) Pulmonary: positive: No symptoms Cardiovascular: positive: No symptoms Gastrointestinal: positive: Flatus Objective - Patient Data Reviewed Vital Signs: Yes Vital Signs: Vital Signs x48h Temp Pulse Resp BP Pulse Ox 05/02/20 06:04 14 05/02/20 04:28 36.5 C 53 L 17 89/51 L 98 05/02/20 03:50 16 05/02/20 03:00 14 05/02/20 02:21 14 05/02/20 01:48 16 Weight: Weight 04/30/20 05/01/20 05/02/20 23:59 23:59 23:59 Weight (kg) 52.163 kg Intake & Output: Intake and Output Totals x24h 04/30/20 05/01/20 05/02/20 23:59 23:59 23:59 Intake Total 3757.5 1380 Output Total 1645 1050 Balance 2112.5 330 - Lab Results Lab Results: 05/02/20 05:15 Other Lab Results: Lab Results x24hrs 05/02/20 05/01/20 05/01/20 Range/Units 05:15 10:29 10:29 WBC 11.5 H 6.0 (4.8-10.8) x10^3/uL RBC 2.97 L 3.94 L (4.20-5.40) 10^6/uL Hgb 9.9 L 13.3 (12.0-16.0) g/dL Hct 30.1 L 39.4 (37.0-47.0) % MCV 101.3 H 100.0 H (81.0-99.0) fL MCH 33.3 H 33.8 H (27.0-31.0) pg MCHC 32.9 33.8 (32.0-36.0) g/dL RDW 12.7 12.8 (12.0-15.0) % Plt Count 124 L 154 (130-450) 10^3/uL MPV 11.3 H 11.3 H (7.9-10.8) fL Neut # (Auto) 9.2 H 4.2 (1.5-6.6) 10^3/uL Lymph # (Auto) 1.2 L 1.1 L (1.5-3.5) 10^3/uL [place] # (Auto) 1.0 0.6 (0.0-1.0) 10^3/uL Eos # (Auto) 0.0 0.0 (0.0-0.7) 10^3/uL Baso # (Auto) 0.0 0.0 (0.0-0.1) 10^3/uL Absolute Nucleated RBC 0.00 0.00 x10^3/uL Nucleated RBC % 0.0 0.0 /100WBC Blood Type O POSITIVE Antibody Screen NEGATIVE - Current Medications Current Medications: Current Medications Generic Name Dose Route Start Last Admin Trade Name Freq PRN Reason Stop Dose Admin Acetaminophen 1,000 mg 05/01/20 14:00 05/02/20 07:14 Tylenol PO 1,000 mg Q8H ANNA Administration Docusate Sodium 100 mg 05/01/20 21:00 05/01/20 20:52 Colace 100mg Capsule PO 100 mg BID ANNA Administration Lactated Ringer's 1,000 mls @ 150 mls/hr 05/01/20 10:00 05/02/20 03:44 Lr IV 150 mls/hr .Q6H40M ANNA Administration Oxycodone HCl 5 mg 05/01/20 13:25 05/02/20 05:50 Roxicodone PO 5 mg Q4HR PRN Administration PAIN Simethicone 80 mg 05/01/20 14:00 05/02/20 07:11 Mylicon PO Not Given TID ANNA Sodium Chloride 10 ml 05/01/20 09:57 05/01/20 15:20 Normal Saline Flush 0.9% IVP 10 ml PRN PRN Administration NEEDED PER PROVIDER ORDERS Sodium Chloride 10 ml 05/01/20 17:00 05/02/20 08:53 Normal Saline Flush 0.9% IVP 10 ml 0100,0900,1700 ANNA Administration - Physical Exam Wound/Incisions: positive: Dressing dry and intact General Appearance: positive: No acute distress, Alert Respiratory: positive: Chest non-tender, No respiratory distress, Breath sounds nml Cardiovascular: positive: Regular rate & rhythm, No murmur, No gallop Abdomen: positive: Non-tender, Nml bowel sounds, No distention Back: negative: CVA tenderness (R), CVA tenderness (L) Extremities: negative: Calf tenderness, Arpit's sign/cords Impression/Plan - Problem List Problem List: POD #1 recovering well. remove branham change to oral NSAID
[2020-05-02] MEDS: DOCUSATE SODIUM 100 MG CAPSULE PO SCH ×2 (09:47→20:32)
[2020-05-02] MEDS: IBUPROFEN 600 MG TABLET PO SCH ×2 (15:01→20:32)
[2020-05-03] MEDS: IBUPROFEN 600 MG TABLET PO SCH ×4 (02:32→20:39)
[2020-05-03] MEDS: oxyCODONE 5 MG TABLET PO PRN ×5 (04:03→19:52)
[2020-05-03 05:32] LABS: BASOPHILS % (AUTO) 0.5 %; EOSINOPHILS # (AUTO) 0.1 10^3/uL (0.0-0.7); EOSINOPHILS % (AUTO) 0.9 %; HGB - HEMOGLOBIN 10.4 g/dL (12.0-16.0); LYMPHOCYTES # (AUTO) 1.8 10^3/uL (1.5-3.5); LYMPHOCYTES % (AUTO) 21.6 %; MEAN CORPUSCULAR HEMOGLOBIN 34.3 pg (27.0-31.0); MEAN CORPUSCULAR HGB CONC 33.4 g/dL (32.0-36.0); MEAN CORPUSCULAR VOLUME 102.6 fL (81.0-99.0); MEAN PLATELET VOLUME 10.9 fL (7.9-10.8); MONOCYTES # (AUTO) 0.7 10^3/uL (0.0-1.0); MONOCYTES % (AUTO) 8.7 %; NEUTROPHILS # (AUTO) 5.8 10^3/uL (1.5-6.6); NEUTROPHILS % (AUTO) 67.8 %; PLT - PLATELET COUNT 143 10^3/uL (130-450); RED BLOOD COUNT 3.03 10^6/uL (4.20-5.40); RED CELL DISTRIBUTION WIDTH 12.9 % (12.0-15.0); WHITE BLOOD COUNT 8.5 x10^3/uL (4.8-10.8)
[2020-05-03] MEDS: ACETAMINOPHEN 500 MG TABLET PO SCH ×2 (07:06→16:07)
[2020-05-03] MEDS: SIMETHICONE CHEW 80 MG TABLET PO SCH ×3 (08:03→18:03)
[2020-05-03] MEDS: DOCUSATE SODIUM 100 MG CAPSULE PO SCH ×2 (08:04→20:40)
--- NOTE | 2020-05-03 12:00 | PROVIDER PROGRESS NOTE ---
Subjective - General Admit Date: 05/01/20 Procedure Date: 10/21/17 Post Op Days: 925 Procedure Performed: RLTC/S withsalpingectomy - Review of Systems Wound/Incisions: positive: Healing well, No drainage General: positive: No symptoms (Pt had problems with pain last PM. increased oxycodone to 10 mg.) Pulmonary: positive: No symptoms Cardiovascular: positive: No symptoms Gastrointestinal: positive: Flatus Objective - Patient Data Vital Signs: Vital Signs x48h Temp Pulse Resp BP Pulse Ox 05/03/20 09:51 36.6 C 60 18 85/47 L 100 Weight: Weight 05/01/20 05/02/20 05/03/20 23:59 23:59 23:59 Weight (kg) 52.163 kg Intake & Output: Intake and Output Totals x24h 05/01/20 05/02/20 05/03/20 23:59 23:59 23:59 Intake Total 3757.5 2170 Output Total 1645 1700 Balance 2112.5 470 - Lab Results Lab Results: 05/03/20 05:20 Other Lab Results: Lab Results x24hrs 05/03/20 Range/Units 05:20 WBC 8.5 (4.8-10.8) x10^3/uL RBC 3.03 L (4.20-5.40) 10^6/uL Hgb 10.4 L (12.0-16.0) g/dL Hct 31.1 L (37.0-47.0) % MCV 102.6 H (81.0-99.0) fL MCH 34.3 H (27.0-31.0) pg MCHC 33.4 (32.0-36.0) g/dL RDW 12.9 (12.0-15.0) % Plt Count 143 (130-450) 10^3/uL MPV 10.9 H (7.9-10.8) fL Neut # (Auto) 5.8 (1.5-6.6) 10^3/uL Lymph # (Auto) 1.8 (1.5-3.5) 10^3/uL Dawson # (Auto) 0.7 (0.0-1.0) 10^3/uL Eos # (Auto) 0.1 (0.0-0.7) 10^3/uL Baso # (Auto) 0.0 (0.0-0.1) 10^3/uL Absolute Nucleated RBC 0.00 x10^3/uL Nucleated RBC % 0.0 /100WBC - Current Medications Current Medications: Current Medications Generic Name Dose Route Start Last Admin Trade Name Freq PRN Reason Stop Dose Admin Acetaminophen 1,000 mg 05/01/20 14:00 05/03/20 07:06 Tylenol PO 1,000 mg Q8H ANNA Administration Docusate Sodium 100 mg 05/01/20 21:00 05/03/20 08:04 Colace 100mg Capsule PO 100 mg BID ANNA Administration Lactated Ringer's 1,000 mls @ 150 mls/hr 05/01/20 10:00 05/02/20 18:22 Lr IV Infused .Q6H40M ANNA Infusion Ibuprofen 600 mg 05/02/20 13:00 05/03/20 08:04 Motrin PO 600 mg Q6HR ANNA Administration Oxycodone HCl 5 mg 05/01/20 13:25 05/02/20 22:18 Roxicodone PO 5 mg Q4HR PRN Administration PAIN Oxycodone HCl 10 mg 05/02/20 22:13 05/03/20 08:04 Roxicodone PO 10 mg Q4HR PRN Administration PAIN Simethicone 80 mg 05/01/20 14:00 05/03/20 08:03 Mylicon PO 80 mg TID ANNA Administration Sodium Chloride 10 ml 05/01/20 09:57 05/01/20 15:20 Normal Saline Flush 0.9% IVP 10 ml PRN PRN Administration NEEDED PER PROVIDER ORDERS Sodium Chloride 10 ml 05/01/20 17:00 05/02/20 08:53 Normal Saline Flush 0.9% IVP 10 ml 0100,0900,1700 ANNA Administration - Physical Exam Wound/Incisions: positive: Healing well, No drainage. negative: Erythema General Appearance: positive: No acute distress, Alert Respiratory: positive: Chest non-tender, No respiratory distress, Breath sounds nml Cardiovascular: positive: Regular rate & rhythm, No murmur Abdomen: positive: Non-tender, Nml bowel sounds, No distention, Mass (u-1 incision without erythema but tender) Back: negative: CVA tenderness (R), CVA tenderness (L) Extremities: negative: Calf tenderness, Arpit's sign/cords Impression/Plan - Problem List Problem List: incisional pain probably nerve pain.
[2020-05-04] MEDS: oxyCODONE 5 MG TABLET PO PRN ×4 (00:12→12:06)
[2020-05-04] MEDS: ACETAMINOPHEN 500 MG TABLET PO SCH ×2 (00:13→08:02)
[2020-05-04] MEDS: IBUPROFEN 600 MG TABLET PO SCH ×2 (03:01→09:10)
--- NOTE | 2020-05-04 07:40 | Discharge Plan ---
Discharge Plan Problem Reviewed?: Yes Disposition: Home, Self Care Condition: Good Diet: Regular Activity Restrictions: see OB restrictions Shower Restrictions: No Driving Restrictions: Yes (not while on oxycodone) No Smoking: If you smoke, Please STOP! Call for help. Follow-up with: Kelvin Reaves MD [Provider Admit Priv/Credential] - 1 Week
[2020-05-04] MEDS ORDERED: MAGNESIUM CITRATE 296 ML BOTTLE PO ONE (08:00)
[2020-05-04] MEDS: DOCUSATE SODIUM 100 MG CAPSULE PO SCH (08:02)
[2020-05-04 08:07] VITALS: BP 91/50
--- NOTE | 2020-05-04 10:19 | DISCHARGE SUMMARY ---
Physician: Una Christensen MD DATE OF ADMISSION: 05/01/2020 DATE OF DISCHARGE: 05/04/2020 ADMISSION DIAGNOSES 1. Intrauterine at 38 weeks. 2. Early labor. 3. Prior section. 4. Desires permanent surgical sterilization. DISCHARGE DIAGNOSIS: Status post section at term. OPERATIONS AND PROCEDURES: 05/01/2020 repeat section with bilateral salpingectomy for cynthia ed sterilization. The procedure was uncomplicated. HOSPITAL COURSE: The patient underwent her section with tubal. Her postoperative course wa s unremarkable. By day number 3, she was requesting discharge home. She was eating, ambu lating, urinating, and without difficulty. Her baby had experienced a 10% weight loss, but a plan had been made for that and the mom is an experienced breast feeder. She was not having a ny heavy bleeding. She had not had a bowel movement in one week and so magnesium citrate was given f or that. DISCHARGE EXAMINATION VITAL SIGNS: Afebrile with normal vital signs. GENERAL: Alert, smiling, in no apparent distress. Currently the baby with a good latc h. ABDOMEN: Soft, nontender, nondistended. Fundus firm and at the umbilicus. The incision is clean, d ry, and intact without erythema or induration. DISPOSITION: Home. CONDITION: Good. FOLLOWUP: Followup in one week with Dr. Reaves for an incision check. The patient has a history of JOS 3. The importance of followup for this was emphasized with risk of progression to cancer and if she does not follow up for this problem. She is status post Tdap. She is Rh positive and rubella immune. Her postoperative hematocrit was 31. TD: 05/04/2020 07:46
[2020-05-04] MEDS ORDERED: BISACODYL 10 MG SUPP PR ONE (12:04)
--- NOTE | 2020-05-04 13:27 | Labor Flowsheet ---
Labor Flowsheet Datetime Report Generated by CPN: 05/04/2020 13:27 Datetime: 05/01/2020 12:15 COMMUNICATION SBAR Notable Communications: Denies traveling outside the country, exposure to anyone with COVID-19 , denies cough or respiratory symptoms of COVID. LaborFlag: Labor Datetime: 05/01/2020 12:08 Stage of : Labor VITAL SIGNS Temperature (C): 36.5
== END 2020-05-04 13:15 | disposition home or self-care (01) | DRG 785 ==
LOC: FBP 09:47
PROVIDERS: ADMIT Obstetrics & Gynecology; ATTEND Obstetrics & Gynecology
PROC: 0UB70ZZ Excision of Bilateral Fallopian Tubes, Open Approach (ICD-10-PCS; 2020-05-01)
PROC: 10D00Z1 Extraction of Products of Conception, Low, Open Approach (ICD-10-PCS; principal; 2020-05-01 10:00)
DX: O34.211 Maternal care for low transverse scar from previous cesarean delivery (principal); O75.82 Onset (spontaneous) of labor after 37 completed weeks of gestation but before 39 completed weeks gestation, with delivery by (planned) cesarean section; O69.81X0 Labor and delivery complicated by cord around neck, without compression, not applicable or unspecified; Z3A.38 38 weeks gestation of pregnancy; Z37.0 Single live birth; Z30.2 Encounter for sterilization; Z86.001 Personal history of in-situ neoplasm of cervix uteri
CPT/HCPCS: 36415; 85025; 86850; 86900; 86901; A9270; J2795; J7120

== ENCOUNTER 2020-08-24 13:37 | Outpatient (CLI) | payer MEDICAID ==
[2020-08-24 14:02] LABS: BASOPHILS # (AUTO) 0.1 10^3/uL (0.0-0.1); EOSINOPHILS # (AUTO) 0.3 10^3/uL (0.0-0.7); HGB - HEMOGLOBIN 13.1 g/dL (12.0-16.0); LYMPHOCYTES # (AUTO) 1.8 10^3/uL (1.5-3.5); LYMPHOCYTES % (AUTO) 28.6 %; MEAN CORPUSCULAR HGB CONC 32.4 g/dL (32.0-36.0); MEAN CORPUSCULAR VOLUME 101.8 fL (81.0-99.0); MEAN PLATELET VOLUME 9.7 fL (7.9-10.8); MONOCYTES # (AUTO) 0.5 10^3/uL (0.0-1.0); MONOCYTES % (AUTO) 8.7 %; NEUTROPHILS # (AUTO) 3.5 10^3/uL (1.5-6.6); NEUTROPHILS % (AUTO) 56.4 %; PLT - PLATELET COUNT 230 10^3/uL (130-450); RED BLOOD COUNT 3.97 10^6/uL (4.20-5.40); RED CELL DISTRIBUTION WIDTH 11.9 % (12.0-15.0); WHITE BLOOD COUNT 6.2 x10^3/uL (4.8-10.8)
== END 2020-08-24 13:38 | disposition home or self-care (01) ==
LOC: LAB 13:37
PROVIDERS: ATTEND Obstetrics & Gynecology
DX: Z01.812 Encounter for preprocedural laboratory examination (principal); D06.9 Carcinoma in situ of cervix, unspecified; Z20.828 Contact with and (suspected) exposure to other viral communicable diseases
CPT/HCPCS: 36415; 85025

== ENCOUNTER 2020-08-29 11:02 | Day surgery (SDC) | payer MEDICAID ==
[~2020-08-29 11:02] MED LIST: CEFAZOLIN SODIUM IN 0.9 % NACL 2 GM/100 ML BAG IV ONE
[2020-08-29] MEDS ORDERED: MIDAZOLAM 2 MG/2 ML VIAL IVP ONE (11:03)
[2020-08-29] MEDS ORDERED: LIDOCAINE-MPF 2% 5 ML VIAL IM ONE (11:03)
[2020-08-29] MEDS ORDERED: KETOROLAC 30 MG/ML VIAL IVP ONE (11:03)
[2020-08-29] MEDS ORDERED: ONDANSETRON 4 MG/2 ML VIAL IVP ONE (11:03)
[2020-08-29] MEDS ORDERED: DEXAMETHASONE 4 MG/ML VIAL IVP ONE (11:03)
[2020-08-29] MEDS ORDERED: PROPOFOL 200 MG/20 ML VIAL IVP ONE (11:03)
[2020-08-29] MEDS ORDERED: fentaNYL 100 MCG/2 ML VIAL IVP ONE (11:03)
[2020-08-29 11:29] LABS: HCG UR QUAL NEGATIVE
[2020-08-29] MEDS ORDERED: LACTATED RINGERS 1,000 ML IV ONE ×2 (11:38→15:00)
--- NOTE | 2020-08-29 12:22 | ANESTHESIA ---
Pre-Anesthesia VS, & Labs - Diagnosis JOS-3 - Procedure LEEP Vital Signs: Temp Pulse Resp BP Pulse Ox 36.7 C 55 L 14 101/59 L 100 08/29/20 11:22 08/29/20 11:22 08/29/20 11:22 08/29/20 11:22 08/29/20 11:22 Height: 5 ft Weight (kg): 45 kg Body Mass Index: 19.3 BMI Classification: Healthy weight - NPO >8 hours - Is Patient ?: No - Lab Results Lab results reviewed: Yes Home Medications and Allergies No Known Home Medications 10/20/17 Allergies/Adverse Reactions: Allergies Allergy/AdvReac Type Severity Reaction Status Date / Time No Known Drug Allergies Allergy Verified 10/20/17 11:21 Anes History & Medical History - Anesthetic History Anesthesia Complications: reports: No previous complications, Other-see comment (Had Appy and C/S) Family history of Anesthesia Complications: Denies Family history of Malignant Hyperthermia: Denies - Medical History Cardiovascular: reports: None Pulmonary: reports: None Gastrointestinal: reports: None Urinary: reports: None Neuro: reports: None Musculoskeletal: reports: None Endocrine/Autoimmune: reports: None Blood Disorders: reports: None Skin: reports: None Smoking Status: Never smoker Other Past Medical History: Currently breast feeding 4 month old. - Surgical History General: Appendectomy Gynecologic: section Exam General: Alert, Oriented x3, Cooperative, No acute distress Dental: WNL, TMJ (Mild TMJ on left-does not lock) Mouth Opening: Greater than 4 Fingerbreadths Neck Mobility: Normal Mallampati classification: II Thyromental Distance: 4-6 cm Respiratory: Lungs clear Cardiovascular: Regular rate Mental/Cognitive Status: Alert/Oriented X3 Cognitive Status: Within normal limits Plan Anesthesia Type: General Consent for Procedure(s) Verified and Reviewed: Yes Code Status: Attempt Resuscitation ASA classification: 1-Healthy patient Is this case an emergency?: No (Consent obtained, questions answered.)
[2020-08-29] MEDS ORDERED: ATROPINE ABBOJECT 1 MG/10 ML SYRINGE IVP PRN (12:24)
[2020-08-29] MEDS ORDERED: ePHEDrine 50 MG/ML VIAL IVP PRN (12:24)
[2020-08-29] MEDS ORDERED: fentaNYL 100 MCG/2 ML VIAL IVP PRN (12:24)
[2020-08-29] MEDS ORDERED: METOCLOPRAMIDE 10 MG/2 ML VIAL IVP PRN (12:24)
[2020-08-29] MEDS ORDERED: ONDANSETRON 4 MG/2 ML VIAL IVP PRN ×2 (12:24→15:25)
[2020-08-29] MEDS ORDERED: HYDROmorphone 0.5 MG/0.5 ML SYRINGE IVP PRN (12:24)
[2020-08-29] MEDS ORDERED: NALOXONE 0.4 MG/ML VIAL IVP PRN (12:24)
[2020-08-29] MEDS ORDERED: MORPHINE 2 MG/ML CARPUJECT IVP PRN (12:24)
[2020-08-29] MEDS ORDERED: LACTATED RINGERS 1,000 ML IV SCH (13:00)
[2020-08-29] MEDS ORDERED: LIDOCAINE 1%-EPI 1:100000 20 ML MDV SUBQ ONE (14:29)
[2020-08-29] MEDS ORDERED: LIDOCAINE 1%-EPI 1:100000 30 ML MDV SUBQ ONE (14:32)
[2020-08-29] MEDS ORDERED: LIDOCAINE 1%-EPI 1:100000 20 ML MDV ONE (14:35)
[2020-08-29] MEDS ORDERED: BUPIVACAINE 0.25%-EPI 1:200000 PF 10 ML VIAL SUBQ ONE (14:40)
[2020-08-29] MEDS ORDERED: BUPIVACAINE 0.25%-EPI 1:200000 PF 30 ML VIAL ONE (14:47)
[2020-08-29] MEDS ORDERED: ACETAMINOPHEN 1,000 MG/100 ML 100 ML IV ONE ×2 (15:14→15:21)
[2020-08-29] MEDS ORDERED: HYDROmorphone 0.5 MG/0.5 ML SYRINGE ONE (15:21)
[2020-08-29] MEDS ORDERED: HYDROcod/ACETAM 5/325 MG TABLET PO PRN (15:25)
[2020-08-29] MEDS ORDERED: LORazepam 2 MG/ML VIAL IVP PRN (15:25)
[2020-08-29] MEDS ORDERED: oxyCODONE 5 MG TABLET PO PRN (15:25)
[2020-08-29] MEDS ORDERED: DOXYCYCLINE 100 MG TABLET PO STA (15:25)
--- NOTE | 2020-08-29 15:30 | OPERATIVE REPORT ---
Operative Report - General Procedure Date: 08/29/20 Planned Procedure: LEEP Pre-Op Diagnosis: JOS III Procedure Performed: LEEP - Procedure Note Primary Surgeon: Kelvin Reaves MD Anesthesia Provider: Phan Araujo CRNA Anesthesia Technique: Local, MAC IV Fluids (mL): 25
--- NOTE | 2020-08-29 16:04 | ANESTHESIA POST OP EVALUATION ---
Anesthesia Post Eval - Post Anesthesia Eval Vitals: Last Vital Signs Temp 36.4 C L 08/29/20 15:47 Pulse 75 08/29/20 15:55 Resp 14 08/29/20 15:55 BP 88/47 L 08/29/20 15:55 Pulse Ox 100 08/29/20 15:55 CV Function Including HR & BP: positive: Stable Pain Control: positive: Satisfactory Nausea & Vomiting: positive: Negative Mental Status: positive: Patient Participates (Feeling groggy) Respiratory Status: Airway Patent Hydration Status: Satisfactory (Taking PO fluids and asking for crackers) Anesthesia Complications: positive: None
[2020-08-29 16:14] VITALS: BP 95/66
[2020-08-29] MEDS ORDERED: ONDANSETRON ODT 4 MG TABLET ONE (16:41)
--- NOTE | 2020-08-30 07:52 | OPERATIVE REPORT ---
DATE OF SERVICE: 08/29/2020 Physician: Kelvin Reaves MD PREOPERATIVE DIAGNOSIS: Cervical intraepithelial neoplasia 3. POSTOPERATIVE DIAGNOSES: Cervical intraepithelial neoplasia 3. PROCEDURE: Loop electrosurgical excision procedure. SURGEON: Kelvin Reaves MD ANESTHESIA: ABIOLA Thrasher ANESTHETIC: Local as well as monitored anesthesia care. FINDINGS: Upon inspecting the cervix with the colposcope, there is evidence of a nonstaining area on the cervix. There was also a divot noted on 8 o'clock area. PROCEDURE: Following adequate IV sedation, local anesthesia with 1% lidocaine with epinephrine was u tilized in a radial fashion. At this point, the cervix was stained with Lugol's solution. A LEEP wa s then used to excise the transition zone in one sweep. A stitch was placed at 12 o'clock. An addit ional divot was taken from 8 o'clock. At this point, the endocervical canal was excised utilizing th e loop, and then an endocervical curetting was accomplished. The base was then treated with electroc autery as well as Monsel's solution. The uterosacral ligaments were injected on either side with 0.2 5% Marcaine with epinephrine. The patient tolerated the procedure well and was taken to recovery in stable condition. Sponge and needle counts were correct. TD: 08/29/2020 15:35
== END 2020-08-29 11:03 | disposition home or self-care (01) ==
LOC: SDS 11:02
PROVIDERS: ATTEND Obstetrics & Gynecology
PROC: 0UBC7ZX Excision of Cervix, Via Natural or Artificial Opening, Diagnostic (ICD-10-PCS; principal; 2020-08-29 12:00)
DX: D06.0 Carcinoma in situ of endocervix (principal)
CPT/HCPCS: 57522; 81025; 88305; 88307; J0131; J0690; J1170; J7120; Q0162

== ENCOUNTER 2021-05-16 14:13 | Outpatient (CLI) | payer MEDICAID ==
[2021-05-18 12:51] LABS: HSV 2 IGG TYPE SPECIFIC AB <0.90 index
[2021-05-20 01:34] LABS: HSV 1 DNA NOT DETECTED; HSV 2 DNA NOT DETECTED; SOURCE VULVA
== END 2021-05-16 14:14 | disposition home or self-care (01) ==
LOC: LAB 14:13
PROVIDERS: ATTEND Obstetrics & Gynecology
DX: N90.89 Other specified noninflammatory disorders of vulva and perineum (principal)
CPT/HCPCS: 81599; 86695; 86696; 87529

== ENCOUNTER 2022-05-12 13:08 | Outpatient (CLI) | payer MEDICAID ==
--- NOTE | 2022-05-13 08:46 | Mammography Report ---
BILATERAL DIGITAL SCREENING MAMMOGRAM 3D/2D: 05/12/2022 CLINICAL: Baseline exam Routine screening. No prior exams were available for comparison. The tissue of both breasts is extremely dense, which l owers the sensitivity of mammography. No significant masses, calcifications, or other findings are seen in either breast. IMPRESSION: NEGATIVE There is no mammographic evidence of malignancy. A 1 year screening mammogram is recommended. Based on Tyrer-Cuzick model (a risk assessment model), the patient's lifetime risk is 30.7% and her 1 0 year risk is 5.4%. If a patient has an elevated risk, a more comprehensive evaluation should be con sidered and/or a referral to a genetic counselor. The [employer], [employer], and NCCN Guidelines advise the consideration of Breast MRI as an adjunct to screening mammog kristen in patients whose "Lifetime risk to develop breast cancer" is 20% or higher. This exam was interpreted at Station ID: [id number]. NOTE: For mammograms, a report in lay terms will be sent to the patient. Approximately 15% of breast malignancies will not be visualized mammographically. In the management of a palpable breast mass, a negative mammogram must not discourage biopsy of a clinically suspicious lesion. Electronically Signed By: Jeff sage/anatoliy:05/12/2022 17:41:13 ACR BI-RADS Category 1: Negative 3341F PARENCHYMAL PATTERN: (VD) - The breast(s) demonstrate(s) extremely dense parenchyma, limiting the sen sitivity of mammography. BI-RADS CATEGORY: (1) - 1 RECOMMENDATION: (ANNUAL) - Recommend routine annual screening mammography. [id number] 1 year screening LATERALITY: (B)
== END 2022-05-12 13:09 | disposition home or self-care (01) ==
LOC: DI.N 13:08
PROVIDERS: ATTEND Obstetrics & Gynecology
DX: Z12.31 Encounter for screening mammogram for malignant neoplasm of breast (principal)

== ENCOUNTER 2024-02-29 08:00 | Outpatient (CLI) | payer MEDICAID ==
[2024-03-01 09:40] LABS: FECAL OCCULT BLOOD (FIT) NEGATIVE (NEGATIVE)
== END 2024-02-29 08:01 | disposition home or self-care (01) ==
LOC: LAB.R 08:00
PROVIDERS: ATTEND Physician Assistant
DX: Z12.11 Encounter for screening for malignant neoplasm of colon (principal)
CPT/HCPCS: 82274

== ENCOUNTER 2024-03-01 09:08 | Outpatient (CLI) | payer MEDICAID ==
[2024-03-01 09:17] LABS: BASOPHILS # (AUTO) 0.1 10^3/uL (0.0-0.1); BASOPHILS % (AUTO) 1.5 %; EOSINOPHILS # (AUTO) 0.2 10^3/uL (0.0-0.7); EOSINOPHILS % (AUTO) 4.1 %; HCT - HEMATOCRIT 40.3 % (37.0-47.0); HGB - HEMOGLOBIN 13.2 g/dL (12.0-16.0); LYMPHOCYTES # (AUTO) 1.6 10^3/uL (1.5-3.5); LYMPHOCYTES % (AUTO) 28.9 %; MEAN CORPUSCULAR HEMOGLOBIN 32.4 pg (27.0-31.0); MEAN CORPUSCULAR HGB CONC 32.8 g/dL (32.0-36.0); MONOCYTES # (AUTO) 0.4 10^3/uL (0.0-1.0); MONOCYTES % (AUTO) 7.2 %; NEUTROPHILS # (AUTO) 3.1 10^3/uL (1.5-6.6); NEUTROPHILS % (AUTO) 58.1 %; PLT - PLATELET COUNT 238 10^3/uL (130-450); RED BLOOD COUNT 4.07 10^6/uL (4.20-5.40); RED CELL DISTRIBUTION WIDTH 11.9 % (12.0-15.0); WHITE BLOOD COUNT 5.4 x10^3/uL (4.8-10.8)
[2024-03-01 09:35] LABS: ALBUMIN 4.5 g/dL (3.2-5.5); ALBUMIN/GLOBULIN RATIO 1.5 (1.0-2.2); ALKALINE PHOSPHATASE 36 IU/L (42-121); ALT ALANINE AMINOTRANSFERASE 7 IU/L (10-60); AST ASPARTATE AMINOTRANSFERASE 12 IU/L (10-42); BILIRUBIN,TOTAL 0.6 mg/dL (0.2-1.0); BUN - BLOOD UREA NITROGEN 11 mg/dL (6-20); CALCIUM 9.5 mg/dL (8.5-10.3); CARBON DIOXIDE - CO2 27 mmol/L (21-32); CHLORIDE 105 mmol/L (101-111); CHOL/HDL RATIO 2.4 (<4.4); CHOLESTEROL 205 mg/dL; CREATININE 0.6 mg/dL (0.6-1.3); GFR - MDRD 108 (>89); GLUCOSE 97 mg/dL (74-104); HDL CHOLESTEROL 85 mg/dL; LDL CHOLESTEROL,CALCULATED 95 mg/dL; LDL/HDL RATIO 1.1 (<4.4); POTASSIUM 3.6 mmol/L (3.5-4.5); SODIUM 137 mmol/L (135-145); TOTAL PROTEIN 7.5 g/dL (6.4-8.9); TRIGLYCERIDES 127 mg/dL (48-352); VLDL CHOLESTEROL 25 mg/dL
== END 2024-03-01 09:09 | disposition home or self-care (01) ==
LOC: LAB 09:08
PROVIDERS: ATTEND Physician Assistant
DX: Z00.00 Encounter for general adult medical examination without abnormal findings (principal); Z13.220 Encounter for screening for lipoid disorders
CPT/HCPCS: 36415; 80053; 80061; 83721; 85025